=== PATIENT | male | born 2000 | race Caucasian/White ===

== ENCOUNTER → 2020-05-12 | Outpatient (CLI) | payer OTHER ==
[~2020-05-12] MED LIST: BACTROBAN OINT22 GM EXT; IBUPROFEN600 MG PO; KEFLEX CAP 500500 MG PO
== END ==
LOC: KOH-I 05-11 10:00
DX: G91.9 Hydrocephalus, unspecified (principal); Z98.2 Presence of cerebrospinal fluid drainage device; Z86.69 Personal history of other diseases of the nervous system and sense organs; G31.9 Degenerative disease of nervous system, unspecified
CPT/HCPCS: 70450